=== PATIENT | male | born 1950 | race Caucasian/White ===

== ENCOUNTER → 2017-12-09 | Outpatient (CLI) | payer MEDICARE, OTHER | LOC: COL.CARD 11:05 | DX: R03.0 Elevated blood-pressure reading, without diagnosis of hypertension (principal) ==

== ENCOUNTER → 2018-07-16 | Outpatient (CLI) | payer MEDICARE, OTHER | LOC: COL.RAD 13:47 | DX: M51.36 Other intervertebral disc degeneration, lumbar region (principal); M51.26 Other intervertebral disc displacement, lumbar region; M94.262 Chondromalacia, left knee; S83.282A Other tear of lateral meniscus, current injury, left knee, initial encounter ==

== ENCOUNTER 2019-04-25 21:48 | Emergency (ER) | payer MEDICARE, OTHER ==
[~2019-04-25] VITALS: Ht 188 cm; Wt 118.2 kg
[2019-04-25 21:54] VITALS: BP 161/88; TEMP 98.2
[2019-04-25] MEDS ORDERED: DOXYCYCLINE HY100 MG PO (23:00)
[2019-04-25 23:07] VITALS: PULSE 96
== END 2019-04-25 23:07 | disposition home or self-care (01) ==
LOC: COL.ER 21:48
DX: S90.861A Insect bite (nonvenomous), right foot, initial encounter (principal); L03.115 Cellulitis of right lower limb; Z87.891 Personal history of nicotine dependence; Z88.0 Allergy status to penicillin; W57.XXXA Bitten or stung by nonvenomous insect and other nonvenomous arthropods, initial encounter

== ENCOUNTER 2019-04-26 13:35 | Emergency (ER) | payer MEDICARE, OTHER ==
[~2019-04-26] VITALS: Ht 188 cm; Wt 118.2 kg
[~2019-04-26 13:35] MED LIST: DOXYCYCLINE HY100 MG PO
[2019-04-26 13:52] VITALS: TEMP 97.9
[2019-04-26 16:29] LABS: BASO # 0.1 (0.0-0.2); BASO % 1.1 % (0.0-2.0); EOS # 0.3 (0.0-0.7); EOS % 3.9 % (0-4.0); GRAN # 3.4 (1.4-6.5); GRAN % 48.1 % (42.2-75.2); HEMATOCRIT 43.9 % (42.0-52.0); HEMOGLOBIN 15.4 g/dl (13.5-18.0); LYMPH # 2.5 (1.2-3.4); LYMPH % 35.5 % (20.0-51.0); MEAN CELL VOLUME 99 fl (80.0-100.0); MEAN CORPUSCULAR HEMOGLOBIN 35 pg (27.0-31.0); MEAN CORPUSCULAR HGB CONC 35 g/dl (33.0-37.0); MEAN PLATELET VOLUME 11.4 fl (7.4-10.4); MONO # 0.8 (0.1-0.6); MONO % 11.1 % (1.7-9.3); PLATELET COUNT 190 K/mm3 (130-400); RED BLOOD COUNT 4.43 M/mm3 (4.20-5.60); REDCELL DISTRIBUTION WIDTH-CV 13.5 % (11.5-14.5)
[2019-04-26 16:38] LABS: ALBUMIN 4.2 gm/dL (3.5-5.0); BILIRUBIN,TOTAL 1.1 mg/dL (0.0-1.0); C-REACTIVE PROTEIN 0.8 mg/dL (0.0-0.9); CALCIUM 9.2 mg/dL (8.4-10.2); CREATININE, serum 0.98 (0.66-1.25); POTASSIUM 4.1 mmol/L (3.4-5.0); TOTAL PROTEIN 7.4 gm/dL (6.4-8.2)
[2019-04-26 17:26] LABS: ERYTHROCYTE SEDIMENTATION RATE 7 mm/hr (0-30)
[2019-04-26 18:43] VITALS: BP 135/93; PULSE 75
== END 2019-04-26 18:43 | disposition home or self-care (01) ==
LOC: COL.ER 13:35
PROVIDERS: Emergency Medicine
DX: L03.115 Cellulitis of right lower limb (principal)

== ENCOUNTER → 2019-05-08 | Outpatient (CLI) | payer MEDICARE, OTHER | LOC: MC.RAD 08:44 | DX: N63.20 Unspecified lump in the left breast, unspecified quadrant (principal) ==

== ENCOUNTER 2020-06-19 08:12 | Emergency (ER) | payer MEDICARE, OTHER ==
[~2020-06-19] VITALS: Ht 190.5 cm; Wt 120.5 kg
[2020-06-19 08:15] VITALS: BP 156/97; TEMP 97.9
[2020-06-19 10:33] VITALS: PULSE 73
== END 2020-06-19 10:00 | disposition home or self-care (01) ==
LOC: COL.ER 08:12
DX: S52.502A Unspecified fracture of the lower end of left radius, initial encounter for closed fracture (principal); S50.812A Abrasion of left forearm, initial encounter; L60.0 Ingrowing nail; Z88.0 Allergy status to penicillin; Z88.8 Allergy status to other drugs, medicaments and biological substances; W19.XXXA Unspecified fall, initial encounter; W22.8XXA Striking against or struck by other objects, initial encounter
CPT/HCPCS: Q4050

== ENCOUNTER → 2020-07-11 | Outpatient (CLI) | payer MEDICARE, OTHER | LOC: ZCOL.LAB 16:33 | DX: Z20.828 Contact with and (suspected) exposure to other viral communicable diseases (principal) ==